=== PATIENT | male | born 1960 | race Caucasian/White ===

== ENCOUNTER 2016-11-09 13:52 | Outpatient (CLI) | payer BC ==
[2016-11-09 16:34] LABS: Eosinophils 3 % (0-10); Lymphocytes 18 % (21-51); MDiff Complete? YES; Mean Corpuscular HGB CONC 33.8 g/dL (32.0-36.0); Mean Corpuscular Hemoglobin 33.3 pg (27.0-31.0); Mean Corpuscular Volume 98.4 fl (80.0-94.0); Mean Platelet Volume 6.5 fL (7.4-10.4); Monocytes 14 % (0-10); Neutrophil 65 % (42-75); PLT Morphology Comment PLATELETS DECREASED ON SLIDE; Platelet Count 86 thou/uL (130-400); RBC Distribution Width 12.9 % (11.5-14.5); Red Blood Cell (RBC) Count 4.21 mill/uL (4.70-6.10)
[2016-11-09 16:36] LABS: ALT (SGPT) 10 U/L (8-55); AST (SGOT) 20 U/L (5-34); Albumin 4.4 g/dL (3.5-5.0); Alkaline Phosphatase 101 U/L (40-150); Anion Gap 15 mmol/L (10-20); Bilirubin, Total 0.7 mg/dL (0.2-1.2); Calc. Creatinine Clearance 0 mL/min (70-130); Calcium 9.2 mg/dL (7.8-10.44); Carbon Dioxide 26 mmol/L (22-29); Cardiac Risk 3.1 (Less than 4.5); Chloride 103 mmol/L (98-107); Cholesterol 202 mg/dL (< 200 Desired); Estimated GFR-MDRD 63; Globulin 2.7 g/dL (2.4-3.5); Glucose 77 mg/dL (70-105); HDL Cholesterol 65 mg/dL (>60 Neg Risk); LDL Cholesterol, Calculated 106 mg/dL; Potassium 5.2 mmol/L (3.5-5.1); Protein, Total 7.1 g/dL (6.0-8.3); Sodium 139 mmol/L (136-145); Triglycerides 157 mg/dL (Less than 150)
[2016-11-09 17:00] LABS: BUN (Urea Nitrogen) 9 mg/dL (8.4-25.7)
[2016-11-09 17:02] LABS: PSA-Asymptomatic (SCREENING) 0.83 ng/mL (0-4.0); Thyroid Stimulating Hormone 1.7285 uIU/mL (0.35-4.94)
== END 2016-11-09 13:53 ==
LOC: LABLEX 13:52
PROVIDERS: ATTEND Family Medicine
DX: Z00.00 Encounter for general adult medical examination without abnormal findings (principal)
CPT/HCPCS: 80053; 80061; 84443; 85025; G0103